=== PATIENT | female | born 1985 ===

== ENCOUNTER 2017-08-07 23:40 | Observation (INO) | payer BC ==
[2017-08-08 00:21] VITALS: BMI 30.2
[2017-08-08] MEDS: Lactated Ringer's 1,000 ML IV SCH ×4 (00:40→09:37)
[2017-08-08 00:51] LABS: BASO % 0.3 % (0.0-2.0); EOS # 0.1 K/uL (0.0-0.7); EOS % 0.4 % (0.0-4.0); HEMATOCRIT 35.5 % (34.0-47.0); LYMPH # 1.6 K/uL (1.0-4.3); LYMPH % 11.1 % (20.0-40.0); MEAN CELL VOLUME 85.8 fl (81.0-99.0); MEAN CORPUSCULAR HEMOGLOBIN 27.3 pg (27.0-31.0); MEAN CORPUSCULAR HGB CONC 31.8 g/dL (33.0-37.0); MEAN PLATELET VOLUME 9.1 fl (7.2-11.7); MONO # 0.9 K/uL (0.0-0.8); MONO % 6.1 % (0.0-10.0); NEUT # 12.1 K/uL (1.8-7.0); NEUT % 82.1 % (50.0-75.0); RED CELL DISTRIBUTION WIDTH 13.9 % (11.5-14.5); WHITE BLOOD COUNT 14.7 K/uL (4.8-10.8)
[2017-08-08 01:25] LABS: ALB/GLOB RATIO 1.1 (1.0-2.1); ALKALINE PHOSPHATASE 127 U/L (38-126); ALT/SGPT 54 U/L (9-52); AMYLASE 135 U/L (30-110); AST/SGOT 35 U/L (14-36); BILIRUBIN,TOTAL 0.3 mg/dl (0.2-1.3); BLOOD UREA NITROGEN 10 mg/dl (7-17); CARBON DIOXIDE 20 mmol/L (22-30); CHLORIDE 106 mmol/L (98-107); GFR AFRICAN-AMERICAN > 60; GLUCOSE,RANDOM 97 mg/dL (65-105); LIPASE 85 U/L (23-300); POTASSIUM 3.7 MMOL/L (3.6-5.0); SODIUM 137 mmol/l (132-148); TOTAL PROTEIN 7.5 G/DL (6.3-8.2)
[2017-08-08 01:29] LABS: RBC URINE 1 /hpf (0-3); URINE BACTERIA RARE (<OCC); URINE BILIRUBIN NEGATIVE (NEGATIVE); URINE BLOOD NEGATIVE (NEGATIVE); URINE COLOR YELLOW (YELLOW); URINE GLUCOSE (UA) NEG (Normal); URINE KETONE 80 mg/dL (NEGATIVE); URINE LEUKOCYTE ESTERASE TRACE Leu/uL (Negative); URINE PROTEIN 30 mg/dL (NEGATIVE); URINE UROBILINOGEN 0.2-1.0 mg/dL (0.2-1.0); WBC URINE 5 /hpf (0-5)
--- NOTE | 2017-08-08 03:43 | US ---
EXAM: US Abdomen Complete CLINICAL HISTORY: 32 years old, female; Pain; Abdominal pain; Flank; Lower; ; Patient HX: Pt states symptoms started at 12 am; Additional info: Nausea/vomiting, , flank pain TECHNIQUE: Real-time ultrasound of the abdomen (complete) with image documentation. COMPARISON: No relevant prior studies available. FINDINGS: Liver: Fatty infiltration. No mass. No intrahepatic ductal dilatation. Gallbladder: Gallstones. No wall thickening. No pericholecystic fluid. No sonographic Soto's sign. Common bile duct: No dilatation. No stones. Pancreas: Unremarkable as visualized. Kidneys: Normal echogenicity. No hydronephrosis. Spleen: No splenomegaly. Aorta: Unremarkable as visualized. Inferior vena cava: Unremarkable. Free fluid: No significant free fluid. IMPRESSION: 1. Cholelithiasis. 2.Non-acute findings are described above.
--- NOTE | 2017-08-08 04:43 | OBHP ---
Datetime: 08/08/2017 02:06 IP Chief Complaint Other: Back pain IP Admit Plan: Observation/Evaluation Admit Comment, IP Provider: S: 32 y/o female, , IUP@29weeks, comes to the clinic c/o flank/back pain which started 2 hours ago. Patient is seen and re-evaluated, still c/o pain. Positive for nausea and vomiting. O: Afebrile Labs: WBC: 14.7, UA clean, fibronectin negative, ALT/Alk phos and amylase evevated A: 32 y/o female, , IUP@29weeks, comes to the clinic c/o flank/back pain, nausea and vomiting . P: - Admit patient for Observation - Medicine Consult - Continue IVF - Abdo U/S - Consider Surgery Consult if symptoms get worse - Will repeat CBC again in morning - Monitor VS/NST/FHT, will re-evaluate patient Case Discussed with Dr. Cook and Lab reviewed --- Alan Coker, PGY-1 OB Hospitalist note: admit for 23h OBSERVATION - check abd sono/conitnue IVF/NPO MAHNDO Back - PN: Abnormal Lungs - PN: Normal Heart - PN: Normal FHR - Baseline A Provider: 150 Comments, ACOG Physical Exam: Flank and back tenderness EGA AdmitDate IP: 29.5 Vital Signs Provider: Reviewed; Within Normal Limits IP Chief Complaint: Other NICHD Variability Prov Fetus A: Moderate 6-25bpm NICHD Accel Fetus A IP Provider: [id number] FHR Category Provider Fetus A: Category I NICHD Decel Fetus A IP Provider: None Datetime: 08/08/2017 00:43 IP Adm Impression: , intrauterine ; No Active Labor; Intact Membranes Pelvic Type - PN: Not Done Extremities - PN: Normal Abdomen - PN: Normal Breast - PN: Not Done Thyroid - PN: Normal Neurologic - PN: Normal HEENT - PN: Normal General - PN: Normal Presentation-Admit: Vertex Contraction Comments Provider: tawanna IP Hx Assessment: The History has been Reviewed and is Current Dilatation, Provider: 0 Effacement, Provider: 0 Genitourinary Exam: Not Done DTRs - PN: Normal
--- NOTE | 2017-08-08 04:54 | CP.PCM.CON ---
History of Present Illness - History of Present Illness History of Present Illness: Attending: Kit Cook MD Reason for Consult:Back pain/abnormal labs Chief Complaint: Back pain /abnormal labs The patient was seen and examined in the Obstetric unit HPI: 32 years old female with no significant past medical hx, and IUP @ 20 weeks, came to her OB clinic complainiing of lower back pain from both flanks down for 2-3 days which, becoming progressively worse. This was associated with nausea, vomiting and diaphoresis. No fever, dysuria, urinary frequencies nor diarrhea. no coughing. Here at the clinic her blood work showed an elevated Leukocytes of 19 with no left shift. PMH: Denies [employer] Hx: PSH: No past surgical hx SH: Denies illegal drug use; No alcohol; No Smoking of cigarettes Allergies: Acetaminophen Shell Fish Review of Systems - Constitutional Constitutional: Malaise. absent: Anorexia, Chills, Fever, Headache - EENT Eyes: Requires Corrective Lenses. absent: Diplopia, Floaters, Photophobia, Sees Flashes Ears: absent: Decreased Hearing, Ear Discharge, Tinnitus Nose/Mouth/Throat: absent: Epistaxis, Nasal Congestion, Sinus Pain, Sinus Pressure - Cardiovascular Cardiovascular: absent: Chest Pain, Dyspnea, Edema, Orthopnea - Respiratory Respiratory: absent: Cough, Dyspnea, Wheezing, Stridor - Gastrointestinal Gastrointestinal: Nausea, Vomiting. absent: Constipation, Diarrhea - Genitourinary Genitourinary: absent: Dysuria, Flank Pain, Hematuria, Urinary Frequency - Musculoskeletal Musculoskeletal: Back Pain. absent: Muscle Weakness - Integumentary Integumentary: absent: Pruritus, Rash, Skin Ulcer, Sores, Striae, Swelling - Neurological Neurological: absent: Confusion, Dizziness, Focal Weakness, Weakness - Psychiatric Psychiatric: absent: Anxiety, Depression, Panic Attacks - Endocrine Endocrine: absent: Palpitations, Polydipsia, Polyphagia, Polyuria - Hematologic/Lymphatic Hematologic: absent: Easy Bleeding, Easy Bruising Past Patient History - Past Medical History & Family History Past Medical History?: No - Past Social History Smoking Status: Never Smoked Chewing Tobacco Use: No Cigar Use: No Alcohol: None Drugs: Denies Home Situation {Lives}: With Family - CARDIAC Hx Cardiac Disorders: No - PULMONARY Hx Respiratory Disorders: No - NEUROLOGICAL Hx Neurological Disorder: No - HEENT Hx HEENT Problems: No - RENAL Hx Chronic Kidney Disease: No - ENDOCRINE/METABOLIC Hx Endocrine Disorders: No - HEMATOLOGICAL/ONCOLOGICAL Hx Blood Disorders: No - INTEGUMENTARY Hx Dermatological Problems: No - MUSCULOSKELETAL/RHEUMATOLOGICAL Hx Musculoskeletal Disorders: No - GASTROINTESTINAL Hx Gastrointestinal Disorders: No - GENITOURINARY/GYNECOLOGICAL Hx Genitourinary Disorders: No - PSYCHIATRIC Hx Psychophysiologic Disorder: No - SURGICAL HISTORY Hx Surgeries: No - ANESTHESIA Hx Anesthesia: No Meds Allergies/Adverse Reactions: Allergies Allergy/AdvReac Type Severity Reaction Status Date / Time acetaminophen Allergy RASH Verified 08/08/17 00:11 shellfish derived Allergy RASH Verified 08/08/17 00:11 - Medications Medications: Current Medications Lactated Ringer's (Lactated Ringer's) 1,000 mls @ 125 mls/hr IV .Q8H [facility] Last Admin: 08/08/17 02:13 Dose: 125 mls/hr Cefoxitin Sodium 2 gm/ Sodium (Chloride) 100 mls @ 100 mls/hr IVPB Q6 [facility] PRN Reason: Protocol Physical Exam - Constitutional Appears: No Acute Distress - Head Exam Head Exam: ATRAUMATIC, NORMAL INSPECTION, NORMOCEPHALIC - Eye Exam Eye Exam: EOMI, Normal appearance Pupil Exam: NORMAL ACCOMODATION, PERRL - ENT Exam ENT Exam: Mucous Membranes Moist, Normal Exam, Normal External Ear Exam, Normal Oropharynx - Neck Exam Neck exam: Positive for: Full Rom, Lymphadenopathy, Normal Inspection. Negative for: Tenderness - Respiratory Exam Respiratory Exam: Clear to Auscultation Bilateral. absent: Rales, Rhonchi, Wheezes - Cardiovascular Exam Cardiovascular Exam: REGULAR RHYTHM, RRR, +S1, +S2. absent: JVD - GI/Abdominal Exam Additional comments: Abdomen with full, soft mild tenderness at the pelvic region, no rebound tenderness or guarding,+ve bowel sounds. - Rectal Exam Rectal Exam: Deferred - Extremities Exam Extremities exam: Positive for: full ROM. Negative for: calf tenderness, joint swelling, normal inspection, pedal edema, tenderness - Back Exam Back exam: NORMAL INSPECTION Additional comments: Mild pain to both flanks on palpation - Neurological Exam Neurological exam: Alert, CN II-XII Intact, Oriented x3, Reflexes Normal - Psychiatric Exam Psychiatric exam: Normal Affect, Normal Mood - Skin Skin Exam: Dry, Intact, Normal Color, Warm Results - Labs Result Diagrams: 08/08/17 00:11 08/08/17 01:15 Labs: Laboratory Results - last 24 hr 08/08/17 08/08/17 08/08/17 00:11 00:11 01:15 WBC 14.7 H RBC 4.14 Hgb 11.3 L Hct 35.5 MCV 85.8 MCH 27.3 MCHC 31.8 L RDW 13.9 Plt Count 262 MPV 9.1 Neut % (Auto) 82.1 H Lymph % (Auto) 11.1 L [place] % (Auto) 6.1 Eos % (Auto) 0.4 Baso % (Auto) 0.3 Neut # 12.1 H Lymph # 1.6 [place] # 0.9 H Eos # 0.1 Baso # 0.0 Sodium Potassium Chloride Carbon Dioxide Anion Gap BUN Creatinine Est GFR ( Amer) Est GFR (Non-Af Amer) Random Glucose Calcium Total Bilirubin AST ALT Alkaline Phosphatase Total Protein Albumin Globulin Albumin/Globulin Ratio Amylase Lipase Urine Color Yellow Urine Clarity Turbid Urine pH 8.0 Ur Specific [place] 1.018 Urine Protein 30 Urine Glucose (UA) Neg Urine Ketones 80 Urine Blood Negative Urine Nitrate Negative Urine Bilirubin Negative Urine Urobilinogen 0.2-1.0 Ur Leukocyte Esterase Trace Urine RBC (Auto) 1 Urine Microscopic WBC 5 Ur Squamous Epith Cells 5 Amorphous Sediment Few H Urine Bacteria Rare Fibronectin Negative Fibronectin Comment [email or web address] 08/08/17 01:15 WBC RBC Hgb Hct MCV MCH MCHC RDW Plt Count MPV Neut % (Auto) Lymph % (Auto) [place] % (Auto) Eos % (Auto) Baso % (Auto) Neut # Lymph # [place] # Eos # Baso # Sodium 137 Potassium 3.7 Chloride 106 Carbon Dioxide 20 L Anion Gap 15 BUN 10 Creatinine 0.6 L Est GFR ( Amer) > 60 Est GFR (Non-Af Amer) > 60 Random Glucose 97 Calcium 9.0 Total Bilirubin 0.3 AST 35 ALT 54 H Alkaline Phosphatase 127 H Total Protein 7.5 Albumin 3.9 Globulin 3.6 Albumin/Globulin Ratio 1.1 Amylase 135 H Lipase 85 Urine Color Urine Clarity Urine pH Ur Specific [place] Urine Protein Urine Glucose (UA) Urine Ketones Urine Blood Urine Nitrate Urine Bilirubin Urine Urobilinogen Ur Leukocyte Esterase Urine RBC (Auto) Urine Microscopic WBC Ur Squamous Epith Cells Amorphous Sediment Urine Bacteria Fibronectin Fibronectin Comment - Imaging and Cardiology US - abdomen Status: Report reviewed by me Additional comment: EXAM: US Abdomen Complete FINDINGS: Liver: Fatty infiltration. No mass. No intrahepatic ductal dilatation. Gallbladder: Gallstones. No wall thickening. No pericholecystic fluid. No sonographic Soto's sign. Common bile duct: No dilatation. No stones. Pancreas: Unremarkable as visualized. Kidneys: Normal echogenicity. No hydronephrosis. Spleen: No splenomegaly. Aorta: Unremarkable as visualized. Inferior vena cava: Unremarkable. Free fluid: No significant free fluid. IMPRESSION: 1. Cholelithiasis. 2. Non-acute findings are described above. Assessment & Plan - Assessment and Plan (Free Text) Assessment: #. Gastritis #. Musculo Skeletal back pain. #. leukocytosis #. Cholelithiasis #. Plan: 32 years old female with no significant past medical hx, and IUP @ 20 weeks , came to her OB clinic complaining of lower back pain from both flanks down for 2 days which, became progressively worse. This was associated with nausea, vomiting and diaphoresis. No fever, dysuria, urinary frequencies nor diarrhea. no coughing. #. Gastritis Etiology unclear - Zofran - IV Fluids - Monitor electrolytes #. Musculo Skeletal back pain most likely from lying in position that caused the pain, no evidence of UTI, Kidney stones nor contusion - Adjust Mattress that is comfortable for patient - Monitor pain #. leukocytosis is reactive to the Vomiting - follow up WBC - Patient was started on Cefoxitin by OB #. Cholelithiasis with no evidence for Biliary colic nor Cholecystitis - follow up with Surgery post #. - Followed by Obstetrics Johann Cochran MD - Date & Time Date: 08/08/17 Time: 04:54
[2017-08-08] MEDS ORDERED: cefOXitin 2 GM in Sodium Chloride 0.9% 100 ML IVPB SCH (05:30)
[2017-08-08 06:45] LABS: BASO # 0.1 K/uL (0.0-0.2); BASO % 0.3 % (0.0-2.0); LYMPH # 1.2 K/uL (1.0-4.3); LYMPH % 6.9 % (20.0-40.0); MEAN CELL VOLUME 85.2 fl (81.0-99.0); MEAN CORPUSCULAR HGB CONC 32.9 g/dL (33.0-37.0); MEAN PLATELET VOLUME 8.3 fl (7.2-11.7); MONO # 0.9 K/uL (0.0-0.8); MONO % 4.9 % (0.0-10.0); NEUT # 15.5 K/uL (1.8-7.0); NEUT % 87.9 % (50.0-75.0); NRBC % 0.1 % (0.0-0.0); PLATELET COUNT 238 K/uL (130-400); RED CELL DISTRIBUTION WIDTH 13.8 % (11.5-14.5); WHITE BLOOD COUNT 17.7 K/uL (4.8-10.8)
[2017-08-08 09:47] LABS: NEUTROPHIL 88 % (42-75); TOTAL CELLS COUNTED 100
[2017-08-08 09:48] LABS: LARGE PLATELETS PRESENT
--- NOTE | 2017-08-08 10:14 | CP.PCM.CON ---
History of Present Illness - History of Present Illness History of Present Illness: 32 y.o. female 29 weeks comes to the hospital c/o left flank pain since last night. Patient states that she never had similar pain before. Denies any fever or chills at home, reports nausea and non bloody vomiting. Passing flatus and had a normal non bloody bowel movement yesterday. Denies any diarrhea or constipation. Denies any urinary symptoms, no sick contacts at home. Currently states that nausea and vomiting as well as left flank pain has completely resolved. Patient underwent abdominal ultrasound showing cholelithiasis but no evidence of cholecystitis. Review of Systems - Constitutional Constitutional: As Per HPI - EENT Eyes: Other (unremarkable) Ears: Other (unremarkable) Nose/Mouth/Throat: Other (unremarkable) - Breasts Breasts: Other (unremarkable) - Cardiovascular Cardiovascular: Other (unremarkable) - Respiratory Respiratory: Other (unremarkable) - Gastrointestinal Gastrointestinal: As Per HPI - Genitourinary Genitourinary: As Per HPI - Musculoskeletal Musculoskeletal: Other (unremarkable) - Integumentary Integumentary: Other (unremarkable) - Neurological Neurological: Other (unremarkable) - Psychiatric Psychiatric: Other (unremarkable) - Endocrine Endocrine: Other (unremarkable) - Hematologic/Lymphatic Hematologic: Other (unremarkable) Past Patient History - Past Medical History & Family History Past Medical History?: No - Past Social History Smoking Status: Never Smoked Chewing Tobacco Use: No Cigar Use: No Alcohol: None Drugs: Denies Home Situation {Lives}: With Family - CARDIAC Hx Cardiac Disorders: No - PULMONARY Hx Respiratory Disorders: No - NEUROLOGICAL Hx Neurological Disorder: No - HEENT Hx HEENT Problems: No - RENAL Hx Chronic Kidney Disease: No - ENDOCRINE/METABOLIC Hx Endocrine Disorders: No - HEMATOLOGICAL/ONCOLOGICAL Hx Blood Disorders: No - INTEGUMENTARY Hx Dermatological Problems: No - MUSCULOSKELETAL/RHEUMATOLOGICAL Hx Musculoskeletal Disorders: No - GASTROINTESTINAL Hx Gastrointestinal Disorders: No - GENITOURINARY/GYNECOLOGICAL Hx Genitourinary Disorders: No - PSYCHIATRIC Hx Psychophysiologic Disorder: No - SURGICAL HISTORY Hx Surgeries: Yes Other/Comment: Liposuction - ANESTHESIA Hx Anesthesia: Yes Meds Allergies/Adverse Reactions: Allergies Allergy/AdvReac Type Severity Reaction Status Date / Time acetaminophen Allergy RASH Verified 08/08/17 00:11 shellfish derived Allergy RASH Verified 08/08/17 00:11 - Medications Medications: Current Medications Lactated Ringer's (Lactated Ringer's) 1,000 mls @ 125 mls/hr IV .Q8H REPLACED BY [facility] Last Admin: 08/08/17 09:37 Dose: 125 mls/hr Cefoxitin Sodium 2 gm/ Sodium (Chloride) 100 mls @ 100 mls/hr IVPB Q6H REPLACED BY [facility] PRN Reason: Protocol Last Admin: 08/08/17 05:31 Dose: 100 mls/hr Physical Exam - Constitutional Appears: Well, Non-toxic, No Acute Distress - Head Exam Head Exam: ATRAUMATIC, NORMAL INSPECTION, NORMOCEPHALIC - Eye Exam Eye Exam: EOMI, Normal appearance, PERRL Pupil Exam: NORMAL ACCOMODATION, PERRL - ENT Exam ENT Exam: Mucous Membranes Moist, Normal Exam - Neck Exam Neck exam: Positive for: Full Rom, Normal Inspection - Respiratory Exam Respiratory Exam: Clear to Auscultation Bilateral, NORMAL BREATHING PATTERN - Cardiovascular Exam Cardiovascular Exam: REGULAR RHYTHM, +S1, +S2 - GI/Abdominal Exam GI & Abdominal Exam: Normal Bowel Sounds, Soft Additional comments: NT, ND, BS+, no rebound, no guarding, gravid uterus, negative Soto's sign - Rectal Exam Rectal Exam: Deferred - Extremities Exam Extremities exam: Positive for: full ROM, normal inspection - Back Exam Back exam: NORMAL INSPECTION - Neurological Exam Neurological exam: Alert, CN II-XII Intact, Oriented x3 - Psychiatric Exam Psychiatric exam: Normal Affect, Normal Mood - Skin Skin Exam: Dry, Intact, Normal Color, Warm Results - Labs Result Diagrams: 08/08/17 06:30 08/08/17 01:15 Labs: Laboratory Results - last 24 hr 08/08/17 08/08/17 08/08/17 00:11 00:11 01:15 WBC 14.7 H RBC 4.14 Hgb 11.3 L Hct 35.5 MCV 85.8 MCH 27.3 MCHC 31.8 L RDW 13.9 Plt Count 262 MPV 9.1 Neut % (Auto) 82.1 H Lymph % (Auto) 11.1 L [place] % (Auto) 6.1 Eos % (Auto) 0.4 Baso % (Auto) 0.3 Neut # 12.1 H Lymph # 1.6 [place] # 0.9 H Eos # 0.1 Baso # 0.0 Neutrophils % (Manual) Band Neutrophils % Lymphocytes % (Manual) Monocytes % (Manual) Toxic Granulation Platelet Estimate Large Platelets Hypochromasia (manual) Ovalocytes Sodium Potassium Chloride Carbon Dioxide Anion Gap BUN Creatinine Est GFR ( Amer) Est GFR (Non-Af Amer) Random Glucose Calcium Total Bilirubin AST ALT Alkaline Phosphatase Total Protein Albumin Globulin Albumin/Globulin Ratio Amylase Lipase Urine Color Yellow Urine Clarity Turbid Urine pH 8.0 Ur Specific [place] 1.018 Urine Protein 30 Urine Glucose (UA) Neg Urine Ketones 80 Urine Blood Negative Urine Nitrate Negative Urine Bilirubin Negative Urine Urobilinogen 0.2-1.0 Ur Leukocyte Esterase Trace Urine RBC (Auto) 1 Urine Microscopic WBC 5 Ur Squamous Epith Cells 5 Amorphous Sediment Few H Urine Bacteria Rare Fibronectin Negative Fibronectin Comment [email or web address] 08/08/17 08/08/17 01:15 06:30 WBC 17.7 H RBC 3.52 L Hgb 9.9 L Hct 30.0 L MCV 85.2 MCH 28.0 MCHC 32.9 L RDW 13.8 Plt Count 238 MPV 8.3 Neut % (Auto) 87.9 H Lymph % (Auto) 6.9 L [place] % (Auto) 4.9 Eos % (Auto) 0.0 Baso % (Auto) 0.3 Neut # 15.5 H Lymph # 1.2 [place] # 0.9 H Eos # 0.0 Baso # 0.1 Neutrophils % (Manual) 88 H Band Neutrophils % 1 Lymphocytes % (Manual) 8 L Monocytes % (Manual) 3 Toxic Granulation Present Platelet Estimate Normal Large Platelets Present Hypochromasia (manual) Moderate Ovalocytes Slight Sodium 137 Potassium 3.7 Chloride 106 Carbon Dioxide 20 L Anion Gap 15 BUN 10 Creatinine 0.6 L Est GFR ( Amer) > 60 Est GFR (Non-Af Amer) > 60 Random Glucose 97 Calcium 9.0 Total Bilirubin 0.3 AST 35 ALT 54 H Alkaline Phosphatase 127 H Total Protein 7.5 Albumin 3.9 Globulin 3.6 Albumin/Globulin Ratio 1.1 Amylase 135 H Lipase 85 Urine Color Urine Clarity Urine pH Ur Specific [place] Urine Protein Urine Glucose (UA) Urine Ketones Urine Blood Urine Nitrate Urine Bilirubin Urine Urobilinogen Ur Leukocyte Esterase Urine RBC (Auto) Urine Microscopic WBC Ur Squamous Epith Cells Amorphous Sediment Urine Bacteria Fibronectin Fibronectin Comment - Imaging and Cardiology US - abdomen Status: Image reviewed by me, Report reviewed by me Assessment & Plan - Assessment and Plan (Free Text) Assessment: 32 y.o. female with left flank pain that has resolved and cholelithiasis Plan: - Taking into account patient's symptoms her symptoms are not related to gallbladder disease - No general surgery intervention at present time - Continue care as per medical and [employer] WORK[employer] teams - Patient was instructed that if she develops RUQ and epigastric abdominal pain to follow up with me in the office - General surgery will sign off - Please re-consult as needed
[2017-08-08] MEDS ORDERED: cefOXitin 2 GM in Dextrose 5% In Water 100 ML IVPB SCH (11:15)
[2017-08-08 19:08] VITALS: BP 99/50; PULSE 108; RESP 18; TEMP 98.4; O2SAT 98
== END 2017-08-08 14:30 | disposition home or self-care (01) ==
LOC: H.EROB2 23:40 → H.L&D 08-08 01:44
PROVIDERS: ADMIT Obstetrics & Gynecology; ATTEND Obstetrics & Gynecology
DX: O26.92 Pregnancy related conditions, unspecified, second trimester (principal); M54.9 Dorsalgia, unspecified; O21.2 Late vomiting of pregnancy; Z3A.29 29 weeks gestation of pregnancy; O99.113 Other diseases of the blood and blood-forming organs and certain disorders involving the immune mechanism complicating pregnancy, third trimester; O26.613 Liver and biliary tract disorders in pregnancy, third trimester; O99.613 Diseases of the digestive system complicating pregnancy, third trimester; K80.20 Calculus of gallbladder without cholecystitis without obstruction; K29.70 Gastritis, unspecified, without bleeding; D72.829 Elevated white blood cell count, unspecified
CPT/HCPCS: 76700; 80053; 81003; 82150; 83690; 85025; 99285; G0378; J0694; J2405; J3105; J7120

== ENCOUNTER 2017-10-09 15:55 | Inpatient (IN) | payer SELFPAY ==
[2017-10-09 16:30] VITALS: BMI 29.2
[2017-10-09] MEDS ORDERED: Lactated Ringer's 1,000 ML IV SCH ×2 (16:30→17:00)
[2017-10-09] MEDS ORDERED: Oxytocin 30 UNITS in Sodium Chloride 0.9% 500 ML IV ONE ×2 (17:00→20:28)
[2017-10-09 17:10] LABS: BASO # 0.1 K/uL (0.0-0.2); BASO % 0.8 % (0.0-2.0); EOS % 0.3 % (0.0-4.0); HEMOGLOBIN 10.9 g/dL (12.0-16.0); LYMPH # 1.7 K/uL (1.0-4.3); LYMPH % 17.1 % (20.0-40.0); MEAN CELL VOLUME 82.2 fl (81.0-99.0); MEAN CORPUSCULAR HEMOGLOBIN 26.6 pg (27.0-31.0); MEAN CORPUSCULAR HGB CONC 32.4 g/dL (33.0-37.0); MEAN PLATELET VOLUME 10.1 fl (7.2-11.7); MONO # 0.6 K/uL (0.0-0.8); MONO % 5.8 % (0.0-10.0); NEUT # 7.6 K/uL (1.8-7.0); NRBC % 0.1 % (0.0-0.0); RBC 4.1 Mil/uL (3.80-5.20); RED CELL DISTRIBUTION WIDTH 14.2 % (11.5-14.5)
--- NOTE | 2017-10-09 17:18 | OBADHP ---
Datetime: 10/09/2017 16:30 Admit Comment, IP Provider: 32 yo IUP ega 38.4 presents to the [facility] after evaluation by Dr. Con mcintosh in office to be 5 cm dilated. Pt shares of contractions, movements, and vaginal spotting. pnc: Dr. Mendoza obhex: 2010 F uncomplicated gyne hx: denies sti; pap neg medhx: none famhx: none surg: liposuction in 2014 soc: denies smoking, alcohol, illicit drugs rx: pnv allergies: acetaminophen, ibuprofen, aspirin, all rash; shellfish aaox3 cardiac: s1s2, no murmurs lungs: clear bilaterally, no wheezing abdo: gravid, nontender GBS: neg; O+ ab neg; hiv: neg; rpr: neg; gc/c: neg; rubella: im; hbsag: neg Assessment: 32 IUP 38.4 -active labor -admit to L_d -labs: cbc, ts, lr - monitor case dw Dr. Artem Valdivia MD PGY1. Attending Note: Pt seen and examined with the patient and I agree with the above. Pelvic Type - PN: Adequate Extremities - PN: Normal Abdomen - PN: Normal Back - PN: Normal Breast - PN: Not Done Lungs - PN: Normal Heart - PN: Normal Thyroid - PN: Not Done Neurologic - PN: Normal HEENT - PN: Normal General - PN: Normal Presentation-Admit: Vertex FHR - Baseline A Provider: 140 Membranes, Provider: Intact Contraction Comments Provider: Q 2-3 Comments, ACOG Physical Exam: Abd: Soft ,NT, BS- present Gestation - Est Wks by US: 38.4 Vital Signs Provider: Reviewed; Within Normal Limits IP Chief Complaint: Uterine contractions; Maternal discomfort NICHD Variability Prov Fetus A: Moderate 6-25bpm NICHD Accel Fetus A IP Provider: [id number] FHR Category Provider Fetus A: Category I NICHD Decel Fetus A IP Provider: None Dilatation, Provider: 6 Effacement, Provider: 60 Station, Provider: -3 Genitourinary Exam: Normal DTRs - PN: Not Done EGA AdmitDate IP: 38.4 IP Adm Impression: Term, intrauterine ; Active labor IP Admit Plan: Admit to unit; Initiate labor protocol Datetime: 08/08/2017 02:06 IP Chief Complaint Other: Back pain Datetime: 08/08/2017 00:43 IP Hx Assessment: The History has been Reviewed and is Current
[2017-10-09 17:21] LABS: CALCIUM 9.4 mg/dL (8.4-10.2); GFR AFRICAN-AMERICAN > 60; GFR NON-AFRICAN AMERICAN > 60
[2017-10-09 17:23] LABS: ALB/GLOB RATIO 0.9 (1.0-2.1); ALBUMIN 3.6 g/dL (3.5-5.0); ALT/SGPT 123 U/L (9-52); AST/SGOT 90 U/L (14-36); BLOOD UREA NITROGEN 10 mg/dl (7-17)
[2017-10-09] MEDS ORDERED: Fentanyl/Bupivacaine HCl 250 ML EPI ONE (18:24)
[2017-10-09] MEDS ORDERED: Benzocaine/Menthol SPRAY TOP PRN (23:56)
[2017-10-09] MEDS ORDERED: Oxycodone/Acetaminophen 5/325 mg Tab PO PRN (23:56)
[2017-10-10] MEDS ORDERED: Lactated Ringer's 1,000 ML IV SCH (02:05)
[2017-10-10] MEDS ORDERED: Benzocaine/Menthol SPRAY TOP PRN (02:05)
[2017-10-10 07:01] LABS: BASO % 0.2 % (0.0-2.0); EOS % 0.1 % (0.0-4.0); HEMOGLOBIN 10.6 g/dL (12.0-16.0); LYMPH # 1.6 K/uL (1.0-4.3); LYMPH % 9.3 % (20.0-40.0); MEAN CELL VOLUME 81.2 fl (81.0-99.0); MEAN CORPUSCULAR HEMOGLOBIN 26.2 pg (27.0-31.0); MEAN CORPUSCULAR HGB CONC 32.2 g/dL (33.0-37.0); MEAN PLATELET VOLUME 9.6 fl (7.2-11.7); MONO % 5.5 % (0.0-10.0); NEUT # 14.9 K/uL (1.8-7.0); NEUT % 84.9 % (50.0-75.0); NRBC % 0.1 % (0.0-0.0); PLATELET COUNT 211 K/uL (130-400); RBC 4.04 Mil/uL (3.80-5.20); RED CELL DISTRIBUTION WIDTH 14.1 % (11.5-14.5); WHITE BLOOD COUNT 17.5 K/uL (4.8-10.8)
--- NOTE | 2017-10-10 09:11 | OBHP ---
Datetime: 10/09/2017 16:30 IP Adm Impression: Term, intrauterine ; Active labor IP Admit Plan: Admit to unit; Initiate labor protocol Admit Comment, IP Provider: 32 yo IUP ega 38.4 presents to the [facility] after evaluation by Dr. Con mcintosh in office to be 5 cm dilated. Pt shares of contractions, movements, and vaginal spotting. pnc: Dr. Mendoza obhex: 2009 F uncomplicated gyne hx: denies sti; pap neg medhx: none famhx: none surg: liposuction in 2014 soc: denies smoking, alcohol, illicit drugs rx: pnv allergies: acetaminophen, ibuprofen, aspirin, all rash; shellfish aaox3 cardiac: s1s2, no murmurs lungs: clear bilaterally, no wheezing abdo: gravid, nontender GBS: neg; O+ ab neg; hiv: neg; rpr: neg; gc/c: neg; rubella: im; hbsag: neg Assessment: 32 IUP 38.4 -active labor -admit to L_d -labs: cbc, ts, lr - monitor case dw Dr. Artem Valdivia MD PGY1. Attending Note: Pt seen and examined with the patient and I agree with the above. Pelvic Type - PN: Adequate Extremities - PN: Normal Abdomen - PN: Normal Back - PN: Normal Breast - PN: Not Done Lungs - PN: Normal Heart - PN: Normal Thyroid - PN: Not Done Neurologic - PN: Normal HEENT - PN: Normal General - PN: Normal FHR - Baseline A Provider: 140 Comments, ACOG Physical Exam: Abd: Soft ,NT, BS- present EGA AdmitDate IP: 38.4 Vital Signs Provider: Reviewed; Within Normal Limits IP Chief Complaint: Uterine contractions; Maternal discomfort NICHD Variability Prov Fetus A: Moderate 6-25bpm NICHD Accel Fetus A IP Provider: 15X15 FHR Category Provider Fetus A: Category I NICHD Decel Fetus A IP Provider: None Dilatation, Provider: 6 Effacement, Provider: 60 Station, Provider: -3 Genitourinary Exam: Normal DTRs - PN: Not Done
--- NOTE | 2017-10-10 09:11 | OBDS ---
DELIVERY PERSONNEL Delivery Doctor: Nathan Mcgill MD Hide Spreader: Azucena Patel RN, Bernarda ABDALLA Anesthesiologist: Columba Billy MD Resident: Dr. Blakely MATERNAL INFORMATION Delivery Anesthesia: Epidural Medications in Delivery: Pitocin Placenta Cultured: No Maternal Complications: None Provider Comments: Uncomplicated spontaneous vaginal delivery of a viable male infant with BW of 8Ib 8.5oz and scores of 9 and 9. EBL- 35omls LABOR SUMMARY EDC: 10/19/2017 00:00 No. Babies in Womb: 1 Attempted: No Labor Anesthesia: Epidural LABOR INFORMATION Reason for Induction: Not Applicable Complete Dilatation: 10/09/2017 23:15 Oxytocin: Augmentation Group B Beta Strep: Negative Antibiotics # of Doses: N/A Steroids Given: None Reason Steroids Not Administered: Not Applicable MEMBRANES Membranes Rupture Method: Artificial Rupture of Membranes: 10/09/2017 20:11 Length of Rupture (hrs): -164.60 Amniotic Fluid Color: Clear Amniotic Fluid Amount: Moderate Amniotic Fluid Odor: Normal STAGES OF LABOR Stage 2 hrs: -167 Stage 2 min: -40 Stage 3 hrs: 168 Stage 3 min: 4 VAGINAL DELIVERY Episiotomy: None Laceration Extension: Second Degree Laceration Type: Perineal Laceration Repair Note: Repaired with 2-0 chromic underlocal anesthesia with epidural, good cosmesis . Sponge Count Correct: Yes Sharps Count Correct: Yes BABY A INFORMATION Infant Delivery Date/Time: 10/02/2017 23:35 Method of Delivery: Vaginal Born in Route : No : N/A Forceps: N/A Vacuum Extraction: N/A Shoulder Dystocia : No SHOULDER DYSTOCIA BABY A Delivery Date/Time: 10/02/2017 23:35 PRESENTATION/POSITION BABY A Presentation: Cephalic Cephalic Presentation: Vertex Breech Presentation: N/A PLACENTA INFORMATION BABY A Placenta Delivery Time : 10/09/2017 23:39 Placenta Method of Delivery: Spontaneous Placenta Status: Delivered SCORES BABY A Heart Rate 1 min: >100 bpm Resp Effort 1 min: Good Cry Reflex Irritability 1 min: Cough or Sneeze or Pulls Away Muscle Tone 1 min: Active Motion Color 1 min: Body [place], Extremities Blue Resuscitation Effort 1 min: Tactile Stimulation SCORE 1 MIN: 9 Heart Rate 5 min: >100 bpm Resp Effort 5 min: Good Cry Reflex Irritability 5 min: Cough or Sneeze or Pulls Away Muscle Tone 5 min: Active Motion Color 5 min: Body [place], Extremities Blue Resuscitation Effort 5 min: N/A SCORE 5 MIN: 9 INFANT INFORMATION BABY A Gestational Age at Delivery: 38.0 Gestational Status: Term Outcome : Liveborn Condition : Stable Infant Sex: Male IDENTIFICATION/MEDS BABY A ID Band Number: [id number] ID Band Location: Left Leg; Left Arm WEIGHT/LENGTH BABY A Birthweight (gms): 3870 Infant Weight (lb): 8 Infant Weight (oz): 8 CORD INFORMATION BABY A No. Cord Vessels: 3 Nuchal Cord : N/A Cord Blood Taken: Yes Suction: Mouth; Nose ASSESSMENT BABY A Infant Complications: None Physical Findings at Delivery: Within Normal Limits Infant Respirations: Appears Normal [employer] Disintegrator/ALS Called : No Infant Care By: Bernarda ABDALLA Transferred To: Remains with Mother
[2017-10-10 10:38] LABS: LYMPHOCYTE 11 % (20-50); MONOCYTE 4 % (0-10); NEUTROPHIL 85 % (42-75); TOTAL CELLS COUNTED 100
[2017-10-10 10:39] LABS: GIANT PLATELETS PRESENT; HYPOCHROMIC SLIGHT; LARGE PLATELETS PRESENT; PLATELET ESTIMATE NORMAL (NORMAL)
--- NOTE | 2017-10-10 11:14 | OBPPN ---
Datetime: 10/10/2017 11:11 PP Pain Prov: Within normal limits PP Nausea Prov: Denies PP Flatus Prov: Yes PP Breasts Prov: Not Done PP Heart Prov: Normal PP Lungs Prov: Normal PP Abdomen/Uterus Prov: Normal PP Lochia Prov: Not Done PP Vulva/Perineum Prov: Not Done PP CVA Tenderness Prov: Normal PP Extremities Prov: Normal PP Progress Prov: Normal PP Impression Prov: Normal progression PP Plan Prov: Continue present management PP Progress Note Prov: Patient did well without complaints reports minimal discomfort ambulating ful ly without difficulty Vital signs stable afebrile Uterus firm below the umbilicus Extremities no Homans day 1 Encourage ambulation, regular diet, analgesics as needed, anticipate discharge in a.m. Vital Signs Provider PP: Reviewed
[2017-10-12 02:22] VITALS: BP 108/65; PULSE 71; RESP 20; TEMP 98.8; O2SAT 100
== END 2017-10-11 13:55 | disposition home or self-care (01) | DRG 775 ==
LOC: H.EROB2 15:55 → H.NURSERY 16:30 → H.L&D 16:53 → H.OB/GYN 10-10 02:00
PROVIDERS: ADMIT Obstetrics & Gynecology; ATTEND Obstetrics & Gynecology
PROC: 10E0XZZ Delivery of Products of Conception, External Approach (ICD-10-PCS; principal; 2017-10-09)
PROC: 0KQM0ZZ Repair Perineum Muscle, Open Approach (ICD-10-PCS; 2017-10-09)
PROC: 4A1HXCZ Monitoring of Products of Conception, Cardiac Rate, External Approach (ICD-10-PCS; 2017-10-09)
DX: O70.1 Second degree perineal laceration during delivery (principal); Z37.0 Single live birth; Z3A.38 38 weeks gestation of pregnancy